=== PATIENT | male | born 1970 | race Caucasian/White ===

== ENCOUNTER 2017-01-26 08:50 | Inpatient (IN) | payer OTHER ==
[2017-01-26 09:07] VITALS: BMI 24.3
--- NOTE | 2017-01-26 11:36 | HP ---
COWS - Scale Resting Pulse: 1= [place] 81-100 Sweatin=Flushed/Facial Moisture Restless Observation: 1= Difficult to Sit Still Pupil Size: 0= Normal to Room Light Bone or Joint Aches: 2= Severe Diffuse Aches Runny Nose/ Eye Tearin= Runny Nose/Eyes GI Upset > 30mins: 2= Nausea/Diarrhea Tremor Observation: 2= Slight Tremor Visible Yawning Observation: 1= 1-2x During Session Anxiety or Irritability: 2=Irritable/Anxious Goose Flesh Skin: 0=Smooth Skin COWS Score: 15 Admission ROS [facility] Chief Complaint: "I want to get off of this Heroin habit that I have." Patient is here to Detox from Heroin. Allergies/Adverse Reactions: Allergies Allergy/AdvReac Type Severity Reaction Status Date / Time No Known Drug Allergies Allergy Verified 01/26/17 09:42 peanut Allergy Intermediate Difficulty Uncoded 01/26/17 09:41 Breathing tomat Allergy Intermediate Hives Uncoded 01/26/17 09:42 History of Present Illness: Patient is a 46 YO male here to detox from Heroin. Patient had 1 previous Detox admission at [facility]) in 04/2016. Most recent period of non- drug use: approx. 2 years, while patient was incarcerated (04/2014 - 04/2016). Exam Limitations: No Limitations - Ebola screening Have you traveled outside of the country in the last 21 days: No Have you had contact with anyone from an Ebola affected area: No Have you been sick,other than usual withdrawal symptoms: No Do you have a fever: No - Review of Systems Constitutional: Chills, Diaphoresis, Fever, Loss of Appetite, Malaise, Night Sweats, Changes in sleep, Unintentional Wgt. Loss (Lost aprox. 20 lbs in 1.5 months.) EENT: reports: Blurred Vision, Nose Congestion, Sinus Pressure, Throat Pain ( Mild discomfort in throat X 1 month. Patient avised to follow-up with [facility] at [facility] ([facility]) after discahrge from Detox for further medical evaluation.) Respiratory: reports: No Symptoms reported Cardiac: reports: No Symptoms Reported GI: reports: Constipated, Nausea, Poor Appetite, Vomiting, Indigestion, Abdominal cramping : reports: Urgency Musculoskeletal: reports: Back Pain, Joint Pain, Muscle Pain, Joint Stiffness Integumentary: reports: No Symptoms Reported Neuro: reports: Headache, Numbness (In fingertips of right hand (history of injury to right hand).), Tingling (In fingertips of right hand (history of injury to right hand).), Tremors Endocrine: reports: No Symptoms Reported Hematology: reports: Easy Bleeding (History of Low Platelets.), Easy Bruising Psychiatric: reports: Judgement Intact, Mood/Affect Appropiate, Orientated x3, Anxious, Depressed (No previous treatment.) Other Systems: Reviewed and Negative Patient History - Patient Medical History Hx Anemia: Yes (History of Thrombocytopenia.) Hx Asthma: No Hx Chronic Obstructive Pulmonary Disease (COPD): No Hx Cancer: No Hx Cardiac Disorders: No Hx Hypertension: No Hx Hypercholesterolemia: No Hx Pacemaker: No HX Cerebrovascular Accident: No Hx Seizures: No Hx Dementia: No Hx Diabetes: No Hx Gastrointestinal Disorders: No Hx Liver Disease: No Hx Genitourinary Disorders: No Hx Sexually Transmitted Disorders: No Hx Renal Disease (ESRD): No Hx Thyroid Disease: No Hx Human Immunodeficiency Virus (HIV): No (Last Tested approx. 6 months ago: NEGATIVE.) Hx Hepatitis C: No (Negative History.) Hx Depression: Yes (No previous treatment.) Hx Suicide Attempt: No (PATIENT DENIES CURRENT SI / HI.) Hx Bipolar Disorder: No Hx Schizophrenia: No Other Medical History: DENIES. - Patient Surgical History Past Surgical History: No Hx Neurologic Surgery: No Hx Cataract Extraction: No Hx Cardiac Surgery: No Hx Lung Surgery: No Hx Breast Surgery: No Hx Breast Biopsy: No Hx Abdominal Surgery: No Hx Appendectomy: No Hx Cholecystectomy: No Hx Genitourinary Surgery: No Hx Orthopedic Surgery: Yes (Screws placed in Right Ankle after injury, 2008.) Anesthesia Reaction: No - PPD History Previous Implant?: Yes Documented Results: Negative w/o proof Implanted On Prior [facility] Admission?: No PPD to be Administered?: Yes - Reproductive History Patient is a Female of Child Bearing Age (11 -55 yrs old): No (PATIENT IS MALE.) - Smoking Cessation Smoking history: Current every day smoker Have you smoked in the past 12 months: Yes Aproximately how many cigarettes per day: 20 Cigars Per Day: 0 Hx Chewing Tobacco Use: No Initiated information on smoking cessation: Yes 'Breaking Loose' booklet given: 01/26/17 (GIVEN ON UNIT.) - Substance & Tx. History Hx Alcohol Use: No Hx Substance Use: Yes Substance Use Type: Cocaine, Heroin, Marijuana, Tranquilizers Hx Substance Use Treatment: Yes (1 Previous Detox admission at [facility] ( [place], [place]), @ 04/2016.) - Substances Abused Heroin Route: Inhalation Frequency: Daily Amount used: 15 bags Age of first use: 12 Date of Last Use: 01/25/17 Cocaine Route: Inhalation Frequency: Daily Amount used: $20 Age of first use: 12 Date of Last Use: 01/24/17 Marijuana/Hashish Route: Smoking Frequency: Daily Amount used: $20 Age of first use: 15 Date of Last Use: 01/24/17 Alprazolam (Xanax) Route: Oral Frequency: 1-3 times last 30 days Amount used: 4 MG - 6 MG Age of first use: 44 Date of Last Use: 01/19/17 Benzodiazepine (Klonopin) Route: Oral Frequency: 1-3 times last 30 days Amount used: 4 MG - 6 MG Age of first use: 44 Date of Last Use: 01/20/17 Family Disease History - Family Disease History Family Disease History: Diabetes: Father (HTN, .), Mother (HTN, .), Heart Disease: Father, Mother Admission Physical Exam [facility] - Vital Signs Vital Signs: Vital Signs - 24 hr 01/26/17 09:06 Temperature 97.9 F Pulse Rate 83 Respiratory 18 Rate Blood Pressure 130/87 - Physical General Appearance: Yes: No Apparent Distress, Nourished, Appropriately Dressed , Tremorous, Sweating, Anxious HEENTM: Yes: Hearing grossly Normal, Normocephalic, Normal Voice, LAUREN, Pharynx Normal Respiratory: Yes: Chest Non-Tender, Lungs Clear, No Respiratory Distress, No Accessory Muscle Use Neck: Yes: No masses,lesions,Nodules, Trachea in good position Breast: Yes: Breast Exam Deferred, Within Normal Limits Cardiology: Yes: Regular Rhythm, Regular Rate, S1, S2 Abdominal: Yes: Normal Bowel Sounds, Flat, Soft Genitourinary: Yes: Within Normal Limits Back: Yes: Decreased Range of Motion Musculoskeletal: Yes: Gait Steady, Back pain, Joint Stiffness Extremities: Yes: Tremors Neurological: Yes: Fully Oriented, Alert, Normal Mood/Affect, Normal Response Integumentary: Yes: Normal Color, Dry, Warm Lymphatic: Yes: Within Normal Limits - Diagnostic (1) Opioid dependence with withdrawal Current Visit: Yes Status: Acute (2) Sedative, hypnotic or anxiolytic dependence, uncomplicated Current Visit: Yes Status: Chronic (3) Cocaine dependence, uncomplicated Current Visit: Yes Status: Acute (4) Cannabis dependence, uncomplicated Current Visit: Yes Status: Acute (5) Nicotine dependence Current Visit: Yes Status: Chronic Qualifiers: Nicotine product type: cigarettes Substance use status: uncomplicated Qualified Code(s): F17.210 - Nicotine dependence, cigarettes, uncomplicated (6) History of thrombocytopenia Current Visit: Yes Status: Suspected (7) Depression (emotion) Current Visit: Yes Status: Acute Qualifiers: Depression Type: unspecified Qualified Code(s): F32.9 - Major depressive disorder, single episode, unspecified Cleared for Admission [facility] - Detox or Rehab [facility] Level of Care: Medically Managed Detox Regimen/Protocol: Methadone [facility] Breath Alcohol Content Breath Alcohol Content: 0 Urine Drug Screen - Results Drug Screen Negative: No Urine Drug Screen Results: THC-Marijuana, DILIP-Cocaine, OPI-Opiates, MTD- Methadone
[2017-01-26] MEDS ORDERED: P-EPHED 60MG/TRIPROLIDI 2.5MG TABLET PO PRN (14:31)
[2017-01-26] MEDS ORDERED: hydrOXYzine PAMOATE 50 MG CAPSULE (FP) PO PRN (14:31)
[2017-01-26] MEDS ORDERED: guaiFENesin/D-METHORPHAN HB 10 ML UNIT-DOSE CUPS PO PRN (14:31)
[2017-01-26] MEDS ORDERED: MAGNESIUM HYDROX 2400MG/30ML ORAL SUSPENSION 30 ML CUP PO PRN (14:31)
[2017-01-26] MEDS ORDERED: MAGNESIUM CITRATE 300 ML BOTTLE PO PRN (14:31)
[2017-01-26] MEDS ORDERED: ACETAMINOPHEN 325 MG TABLET (FP) PO PRN (14:31)
[2017-01-26] MEDS ORDERED: NICOTINE POLACRILEX 4 MG GUM BUC PRN (14:31)
[2017-01-26] MEDS ORDERED: IBUPROFEN 400 MG TABLET (FP) PO PRN (14:31)
[2017-01-26] MEDS ORDERED: MENTHOL/PHENOL 1 EACH UD MM PRN (14:31)
[2017-01-26] MEDS ORDERED: LOPERAMIDE HCL 2 MG CAPSULE PO PRN (14:31)
[2017-01-26] MEDS ORDERED: MAG HYDROX/AL HYDROX/SIMETH 30 ML UNIT-DOSE CUP PO PRN (14:31)
[2017-01-26] MEDS ORDERED: METHADONE HCL 10 MG TABLET (FOR DETOX USE ONLY) PO ONE ×2 (14:40→23:00)
[2017-01-26] MEDS: diazePAM 5 MG TABLET PO PRN ×2 (15:07→22:22)
[2017-01-26 22:09] LABS: URINE APPEARANCE CLEAR; URINE BILIRUBIN NEGATIVE (NEGATIVE); URINE BLOOD NEGATIVE (NEGATIVE); URINE COLOR AMBER; URINE GLUCOSE (UA) NEGATIVE (NEGATIVE); URINE KETONE TRACE (NEGATIVE); URINE NITRITE NEGATIVE (NEGATIVE); URINE PROTEIN NEGATIVE (NEGATIVE); URINE UROBILINOGEN 4.0 E.U/dl mg/dL (0.2-1.0)
[2017-01-26] MEDS: THIAMINE HCL 100 MG TABLET (FP) PO SCH (22:22)
[2017-01-27] MEDS: diazePAM 5 MG TABLET PO PRN ×3 (06:06→22:15)
--- NOTE | 2017-01-27 09:11 | PN ---
[facility] CIWA - CIWA Score Nausea/Vomitin Muscle Tremors: 3 Anxiety: 3 Agitation: 3 Paroxysmal Sweats: 3 Orientation: 0-Oriented Tacttile Disturbances: 0-None Auditory Disturbances: 0-None Visual Disturbances: 0-None Headache: 0-None Present CIWA-Ar Total Score: 15 [facility] COWS - Scale Resting Pulse: 1= [place] 81-100 Sweatin= Chills/Flushing Restless Observation: 1= Difficult to Sit Still Pupil Size: 1= Pupils >than Normal Bone or Joint Aches: 1= Mild Discomfort Runny Nose/ Eye Tearin= Nasal Congestion GI Upset > 30mins: 2= Nausea/Diarrhea Tremor Observation of Outstretched Hands: 1= Tremor [place], Not Seen Yawning Observation: 1= 1-2x During Session Anxiety or Irritability: 2=Irritable/Anxious Goose Flesh Skin: 3=Piloerection COWS Score: 15 [facility] Progress Note (SOAP) Subjective: nausea, sweats, interrupted sleep, anxiety, tremors Objective: 01/27/17 09:10 Vital Signs - 24 hr 01/26/17 01/26/17 01/26/17 14:30 18:18 22:01 Temperature 98.2 F 97.7 F 98.2 F Pulse Rate 92 H 86 80 Respiratory 20 20 18 Rate Blood Pressure 136/60 114/79 104/69 01/27/17 01/27/17 03:30 06:00 Temperature 97.9 F Pulse Rate 63 Respiratory 18 18 Rate Blood Pressure 115/74 Laboratory Tests 01/26/17 15:00 Urine Color Shobha Urine Appearance Clear Urine pH 5.0 Ur Specific Joshua 1.026 Urine Protein Negative Urine Glucose (UA) Negative Urine Ketones Trace H Urine Blood Negative Urine Nitrite Negative Urine Bilirubin Negative Urine Urobilinogen 4.0 e.u/dl labs pending Assessment: 01/27/17 09:10 withdrawal sx Plan: cont detox, lfuids
[2017-01-27 09:25] LABS: URINE LEUK ESTERASE Negative (NEGATIVE)
[2017-01-27] MEDS ORDERED: METHADONE HCL 10 MG TABLET (FOR DETOX USE ONLY) PO ONE (10:00)
[2017-01-27] MEDS ORDERED: PANTOPRAZOLE 40 MG TABLET (FP) PO SCH (10:00)
[2017-01-27] MEDS ORDERED: PRENATAL VITAMINS W/ FOLIC ACID TABLET (FP) PO SCH (10:00)
[2017-01-27] MEDS ORDERED: NICOTINE 21 MG/24 HOURS TOPICAL PATCH TD SCH (10:00)
[2017-01-27 10:09] LABS: MCH 29.8 pg (25.7-33.7); MCHC 33.1 g/dl (32.0-35.9); MEAN CELL VOLUME 89.9 fl (80-96); PLATELET COUNT 111 K/MM3 (134-434); RDW 13.8 % (11.9-15.9); WHITE BLOOD COUNT 7.6 K/mm3 (4.0-10.0)
--- NOTE | 2017-01-27 10:17 | EKG ---
Test Reason : Blood Pressure : / mmHG Vent. Rate : 076 BPM Atrial Rate : 076 BPM P-R Int : 156 ms QRS Dur : 104 ms QT Int : 364 ms P-R-T Axes : 072 021 056 degrees QTc Int : 409 ms NORMAL SINUS RHYTHM NORMAL ECG NO PREVIOUS ECGS AVAILABLE Confirmed by MERY BARNARD, MARCELA ([id number]) on 01/27/2017 10:17:20 AM Referred By: Confirmed By:MARCELA ORDONEZ MD
[2017-01-27 10:44] LABS: ALBUMIN 4.2 g/dl (3.4-5.0); ALK PHOS 61 U/L (45-117); ANION GAP 7 (8-16); BILIRUBIN,TOTAL 1.1 mg/dL (0.2-1.0); CO2 28 mmol/L (21-32); CREATININE 1.2 mg/dL (0.7-1.3); GLUCOSE,RANDOM 153 mg/dL (74-106); SGOT/AST 12 U/L (15-37); SGPT/ALT 22 U/L (12-78); TOT PROT 6.9 g/dl (6.4-8.2)
[2017-01-27] MEDS: AMMONIUM LACTATE 12% LOTION 225 GM BOTTLE TP SCH ×2 (11:06→22:16)
[2017-01-27 15:49] LABS: HIV 1 & 2 AB NEGATIVE; HIV 1 AGp24 NEGATIVE
--- NOTE | 2017-01-27 16:58 | CONSULT ---
[facility] Psychiatric Consult - Data Date of interview: 01/27/17 Admission source: [facility] Identifying data: First admission to [facility] for this 46 y/o male seeking detox treatment on for heroin,cocaine,xanax and marihuana dependence.Patient is single,a father of one,homeless,unemployed and supported on food stamps. Substance Abuse History: Confirmed by the patient in this session.See [facility] report for details : Smoking history: Current every day smoker. Have you smoked in the past 12 months: Yes. Aproximately how many cigarettes per day: 20. Cigars Per Day: 0. Hx Chewing Tobacco Use: No. Initiated information on smoking cessation: Yes. 'Breaking Loose' booklet given: 01/26/17 (GIVEN ON UNIT.). - Substance & Tx. History. Hx Alcohol Use: No. Hx Substance Use: Yes. Substance Use Type: Cocaine, Heroin, Marijuana, Tranquilizers. Hx Substance Use Treatment: Yes (1 Previous Detox admission at [place], [place]), @ 04/2016.). - Substances Abused. Heroin. Route: Inhalation. Frequency: Daily. Amount used: 15 bags. Age of first use: 12. Date of Last Use: 01/25/17. Cocaine. Route: Inhalation. Frequency: Daily. Amount used : $20. Age of first use: 12. Date of Last Use: 01/24/17. Marijuana/ Hashish. Route: Smoking. Frequency: Daily. Amount used: $20. Age of first use: 15. Date of Last Use: 01/24/17. Alprazolam (Xanax). Route: Oral. Frequency: 1-3 times last 30 days. Amount used: 4 MG - 6 MG. Age of first use : 44. Date of Last Use: 01/19/17. Benzodiazepine (Klonopin). Route: Oral. Frequency: 1-3 times last 30 days. Amount used: 4 MG - 6 MG. Age of first use: 44. Date of Last Use: 01/20/17 Medical History: Patient denies medical problems.Noted history of orthosurgery for fracture of right ankle (hardware in situ) in 2009. Psychiatric History: Patient denies. Physical/Sexual Abuse/Trauma History: No reported history of abuse. Additional Comment: Urine Drug Screen Results: THC-Marijuana, DILIP-Cocaine, OPI- Opiates, MTD-Methadone.Noted. Mental Status Exam - Mental Status Exam Alert and Oriented to: Time, Place, Person Cognitive Function: Good Patient Appearance: Well Groomed (tattoos all over forearms) Mood: Euthymic Affect: Normal Range Patient Behavior: Appropriate, Cooperative Speech Pattern: Clear, Appropriate Voice Loudness: Normal Thought Process: Intact, Goal Oriented Thought Disorder: Not Present Hallucinations: Denies Suicidal Ideation: Denies Homicidal Ideation: Denies Insight/Judgement: Poor Sleep: Poorly, Difficulty falling asleep Appetite: Good Muscle strength/Tone: Normal Gait/Station: Normal Psychiatric Findings - Problem List ([place] 1, 2,3) (1) Opioid dependence with withdrawal Current Visit: Yes Status: Acute (2) Cannabis dependence, uncomplicated Current Visit: Yes Status: Acute (3) Sedative, hypnotic or anxiolytic dependence, uncomplicated Current Visit: Yes Status: Chronic (4) Cocaine dependence, uncomplicated Current Visit: Yes Status: Acute (5) Nicotine dependence Current Visit: Yes Status: Acute Qualifiers: Nicotine product type: cigarettes Substance use status: uncomplicated Qualified Code(s): F17.210 - Nicotine dependence, cigarettes, uncomplicated (6) Insomnia Current Visit: Yes Status: Acute - Initial Treatment Plan Initial Treatment Plan: Psychoeducation.Detoxification.Sleep hygiene recommended.Ambien 10 mg po hs prn.Patient is informed of risk of parasomnias.He is in agreement with this careplan.Observation.
[2017-01-27] MEDS ORDERED: ZOLPIDEM TARTRATE 10 MG TABLET (PARK CARE ONLY) PO PRN (22:00)
[2017-01-27] MEDS: THIAMINE HCL 100 MG TABLET (FP) PO SCH (22:15)
[2017-01-27 22:49] VITALS: TEMP 98.1
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
--- NOTE | 2017-01-28 09:25 | DS ---
[facility] Detox Discharge Summary Admission Date: 01/26/17 Discharge Date: 01/28/17 - History Present History: Alcohol Dependence, Cannabis Dependence, Opioid Dependence - Physical Exam Results Vital Signs: Vital Signs Temperature 98.1 F 01/28/17 06:00 Pulse Rate 54 L 01/28/17 06:00 Respiratory Rate 18 01/28/17 06:00 Blood Pressure 120/76 01/28/17 06:00 O2 Sat by Pulse Oximetry (%) - Treatment Hospital Course: Discharged Condition Good - Medication Discharge Medications: Ambulatory Orders NK [No Known Home Medication] 01/26/17 - AMA Did Patient Leave Against Medical Advice: No (not following unit rules, fighting on the unit)
[2017-01-28] MEDS ORDERED: METHADONE HCL 5 MG TABLET (FOR DETOX USE ONLY) PO ONE (10:00)
[2017-01-28 11:32] VITALS: BP 131/63; PULSE 75
[2017-01-29] MEDS ORDERED: METHADONE HCL 5 MG TABLET (FOR DETOX USE ONLY) PO ONE (10:00)
[2017-01-30] MEDS ORDERED: METHADONE HCL 10 MG TABLET (FOR DETOX USE ONLY) PO ONE (10:00)
[2017-01-31] MEDS ORDERED: METHADONE HCL 5 MG TABLET (FOR DETOX USE ONLY) PO ONE (06:00)
== END 2017-01-28 09:40 | disposition home or self-care (01) | DRG 773 ==
LOC: YASAS 08:50 → Y6N 12:09
PROVIDERS: ADMIT Internal Medicine; ATTEND Internal Medicine
PROC: HZ2ZZZZ Detoxification Services for Substance Abuse Treatment (ICD-10-PCS; principal; 2017-01-26)
DX: F11.23 Opioid dependence with withdrawal (principal); F13.230 Sedative, hypnotic or anxiolytic dependence with withdrawal, uncomplicated; F14.20 Cocaine dependence, uncomplicated; F12.20 Cannabis dependence, uncomplicated; F17.210 Nicotine dependence, cigarettes, uncomplicated; F32.9 Major depressive disorder, single episode, unspecified; F91.8 Other conduct disorders; G47.00 Insomnia, unspecified; Z91.010 Allergy to peanuts; Z86.2 Personal history of diseases of the blood and blood-forming organs and certain disorders involving the immune mechanism; Z59.0 Homelessness
CPT/HCPCS: 36415; 80053; 81003; 85027; 86593; 86803; 87389; 93005; 93010

== ENCOUNTER 2017-05-18 09:25 | Inpatient (IN) | payer OTHER ==
[2017-05-18 09:33] VITALS: BMI 23.3
--- NOTE | 2017-05-18 12:35 | HP ---
COWS - Scale Resting Pulse: 0= [place] 80 or Below Sweatin= Chills/Flushing Restless Observation: 1= Difficult to Sit Still Pupil Size: 1= Pupils >than Normal Bone or Joint Aches: 1= Mild Discomfort Runny Nose/ Eye Tearin= Nasal Congestion GI Upset > 30mins: 3= Vomiting/Diarrhea Tremor Observation: 2= Slight Tremor Visible Yawning Observation: 1= 1-2x During Session Anxiety or Irritability: 2=Irritable/Anxious Goose Flesh Skin: 3=Piloerection COWS Score: 16 Admission [facility] Chief Complaint: heroin withdrawal sx Allergies/Adverse Reactions: Allergies Allergy/AdvReac Type Severity Reaction Status Date / Time peanut Allergy Severe Difficulty Verified 05/18/17 10:48 Breathing tomato Allergy Severe Hives Verified 05/18/17 10:48 No Known Drug Allergies Allergy Verified 01/26/17 09:42 History of Present Illness: 46 yo m with h/o severe opioid use disorder has been to [facility] last year for detox requesting [facility] detox because of opioid withdrwal sx. sniffs cocaine daily, smokes marijuana and cigarrettes (1/2PPD) daily. no h/o seizures, DTs, no si at this time. P<HX depression,a nxiety, insomnai and thristy, s/p fx r ankle s/p orif no w has chronic pain syndromw Exam Limitations: No Limitations - Ebola screening Have you traveled outside of the country in the last 21 days: No Have you had contact with anyone from an Ebola affected area: No Have you been sick,other than usual withdrawal symptoms: No Do you have a fever: No - Review of Systems Constitutional: Chills, Diaphoresis, Night Sweats, Changes in sleep, Unintentional Wgt. Loss EENT: reports: Tearing, Nose Congestion Respiratory: reports: No Symptoms reported Cardiac: reports: No Symptoms Reported GI: reports: Diarrhea, Nausea, Poor Appetite, Poor Fluid Intake, Vomiting, Indigestion, Abdominal cramping : reports: No Symptoms Reported Musculoskeletal: reports: Back Pain, Muscle Pain Integumentary: reports: Flushing, Sweating Neuro: reports: Headache, Tremors Endocrine: reports: Increased Thirst Hematology: reports: No Symptoms Reported Psychiatric: reports: Judgement Intact, Mood/Affect Appropiate, Orientated x3, Agitated, Anxious, Depressed Other Systems: Reviewed and Negative Patient History - Patient Medical History Hx Anemia: Yes (History of Thrombocytopenia.) Hx Asthma: No Hx Chronic Obstructive Pulmonary Disease (COPD): No Hx Cancer: No Hx Cardiac Disorders: No Hx Congestive Heart Failure: No Hx Hypertension: No Hx Hypercholesterolemia: No Hx Pacemaker: No HX Cerebrovascular Accident: No Hx Seizures: No Hx Dementia: No Hx Diabetes: No Hx Gastrointestinal Disorders: No Hx Liver Disease: No Hx Genitourinary Disorders: No Hx Sexually Transmitted Disorders: No Hx Renal Disease (ESRD): No Hx Thyroid Disease: No Hx Human Immunodeficiency Virus (HIV): No (Last Tested approx. 6 months ago: NEGATIVE.) Hx Hepatitis C: No (Negative History.) Hx Depression: Yes (whe in withdrawal) Hx Suicide Attempt: No (no si at this time) Hx Bipolar Disorder: No Hx Schizophrenia: No - Patient Surgical History Past Surgical History: No Hx Neurologic Surgery: No Hx Cataract Extraction: No Hx Cardiac Surgery: No Hx Lung Surgery: No Hx Breast Surgery: No Hx Breast Biopsy: No Hx Abdominal Surgery: No Hx Appendectomy: No Hx Cholecystectomy: No Hx Genitourinary Surgery: No Hx Orthopedic Surgery: Yes (Screws placed in Right Ankle after injury, 2008.) Anesthesia Reaction: No - PPD History Previous Implant?: Yes Documented Results: Negative w/o proof PPD to be Administered?: Yes - Reproductive History Patient is a Female of Child Bearing Age (11 -55 yrs old): No Patient : No - Smoking Cessation Smoking history: Current every day smoker Have you smoked in the past 12 months: Yes Aproximately how many cigarettes per day: 10 Cigars Per Day: 0 Hx Chewing Tobacco Use: No Initiated information on smoking cessation: Yes 'Breaking Loose' booklet given: 05/18/17 - Substance & Tx. History Hx Alcohol Use: No Hx Substance Use: Yes Substance Use Type: Cocaine, Heroin, Marijuana, Opiates Hx Substance Use Treatment: Yes ([facility] detox) - Substances Abused Heroin Route: Inhalation Frequency: Daily Amount used: 8-10 bags Age of first use: 12 Date of Last Use: 05/17/17 Cocaine Route: Inhalation Frequency: Daily Amount used: $20-40 Age of first use: 12 Date of Last Use: 05/17/17 Marijuana Route: Smoking Frequency: Daily Amount used: $20 Age of first use: 12 Date of Last Use: 05/17/17 Family Disease History - Family Disease History Family Disease History: Diabetes: Father (HTN, .), Mother (HTN, .), Heart Disease: Father, Mother Admission Physical Exam [facility] - Vital Signs Vital Signs: Vital Signs - 24 hr 05/18/17 09:32 Temperature 97 F L Pulse Rate 65 Respiratory 18 Rate Blood Pressure 138/81 - Physical General Appearance: Yes: Nourished, Appropriately Dressed, Disheveled, Mild Distress, Thin, Tremorous, Irritable, Sweating, Anxious HEENTM: Yes: Within Normal Limits, EOMI, Hearing grossly Normal, Normocephalic, Normal Voice, LAUREN, Pharynx Normal, Nasal Congestion, Rhinorrhea Respiratory: Yes: Within Normal Limits, Chest Non-Tender, Lungs Clear, Normal Breath Sounds, No Respiratory Distress, No Accessory Muscle Use Neck: Yes: Within Normal Limits, No masses,lesions,Nodules, Supple Breast: Yes: Breast Exam Deferred Cardiology: Yes: Within Normal Limits, Regular Rhythm, Regular Rate, S1, S2 Abdominal: Yes: Within Normal Limits, Normal Bowel Sounds, Non Tender, Flat, Soft, Increased Bowel Sounds Genitourinary: Yes: Within Normal Limits Back: Yes: Within Normal Limits, Normal Inspection, Muscle Spasm Neurological: Yes: iuss analyst II-XII NML intact, Fully Oriented, Alert, Motor Strength 5/5, Normal Response, Depressed Affect Integumentary: Yes: Normal Color, Warm, Diaphoresis, Moist Lymphatic: Yes: Within Normal Limits - Addiitonal Findings: withdrawal sx - Diagnostic (1) Cannabis dependence, uncomplicated Current Visit: No Status: Acute (2) Cocaine dependence, uncomplicated Current Visit: No Status: Acute (3) Insomnia Current Visit: No Status: Acute (4) Nicotine dependence Current Visit: No Status: Acute Qualifiers: Nicotine product type: cigarettes Substance use status: uncomplicated Qualified Code(s): F17.210 - Nicotine dependence, cigarettes, uncomplicated (5) Opioid dependence with withdrawal Current Visit: No Status: Acute (6) History of thrombocytopenia Current Visit: No Status: Suspected (7) Dehydration Current Visit: Yes Status: Acute (8) Depression Current Visit: Yes Status: Acute S Breath Alcohol Content Breath Alcohol Content: 0 Urine Drug Screen - Results Drug Screen Negative: No Urine Drug Screen Results: THC-Marijuana, DILIP-Cocaine, OPI-Opiates
[2017-05-18] MEDS ORDERED: MENTHOL/PHENOL 1 EACH UD MM PRN (12:36)
[2017-05-18] MEDS ORDERED: LOPERAMIDE HCL 2 MG CAPSULE PO PRN (12:36)
[2017-05-18] MEDS ORDERED: hydrOXYzine PAMOATE 50 MG CAPSULE (FP) PO PRN (12:36)
[2017-05-18] MEDS ORDERED: MAG HYDROX/AL HYDROX/SIMETH 30 ML UNIT-DOSE CUP PO PRN (12:36)
[2017-05-18] MEDS ORDERED: MAGNESIUM CITRATE 300 ML BOTTLE PO PRN (12:36)
[2017-05-18] MEDS ORDERED: NICOTINE POLACRILEX 2 MG GUM BC PRN (12:36)
[2017-05-18] MEDS ORDERED: P-EPHED 60MG/TRIPROLIDI 2.5MG TABLET PO PRN (12:36)
[2017-05-18] MEDS ORDERED: IBUPROFEN 400 MG TABLET (FP) PO PRN (12:36)
[2017-05-18] MEDS ORDERED: MAGNESIUM HYDROX 2400MG/30ML ORAL SUSPENSION 30 ML CUP PO PRN (12:36)
[2017-05-18] MEDS ORDERED: guaiFENesin/D-METHORPHAN HB 10 ML UNIT-DOSE CUPS PO PRN (12:36)
[2017-05-18] MEDS: diazePAM 5 MG TABLET PO PRN ×2 (13:21→22:13)
[2017-05-18] MEDS: cloNIDine HCL 0.1 MG TABLET PO SCH ×2 (13:21→22:14)
[2017-05-18] MEDS: CYCLOBENZAPRINE HCL 10 MG TABLET (FP) PO SCH ×2 (13:23→22:14)
[2017-05-18] MEDS ORDERED: METHADONE HCL 10 MG TABLET (FOR DETOX USE ONLY) PO ONE ×2 (13:30→23:00)
[2017-05-18 14:22] LABS: URINE APPEARANCE CLEAR; URINE BILIRUBIN NEGATIVE (NEGATIVE); URINE BLOOD NEGATIVE (NEGATIVE); URINE COLOR YELLOW; URINE GLUCOSE (UA) NEGATIVE (NEGATIVE); URINE KETONE NEGATIVE (NEGATIVE); URINE LEUK ESTERASE NEGATIVE (NEGATIVE); URINE NITRITE NEGATIVE (NEGATIVE); URINE PROTEIN NEGATIVE (NEGATIVE); URINE UROBILINOGEN 4.0 E.U/dl mg/dL (0.2-1.0)
[2017-05-18] MEDS: NICOTINE 14 MG/24 HOURS TOPICAL PATCH TD SCH (15:08)
--- NOTE | 2017-05-18 15:20 | CONSULT ---
[facility] Psychiatric Consult - Data Date of interview: 05/18/17 Admission source: [facility] Identifying data: Second admission to [facility] for this 46 y/o male seeking detox treatment on for heroin,cocaine and marihuana dependence.Patient is single,a father of one,homeless,unemployed and supported on food stamps. Substance Abuse History: Discussed with the patient.Mr Hdz admits to a 30+ year history of heroin abuse (snorts 8-10 bags daily) + 10 year history of cocaine abuse via snorting (20-40 dollllars a day) + smoking cannabis for more than 30 years (20 dollars a day). More details in current [facility] report : Smoking history: Current every day smoker. Have you smoked in the past 12 months: Yes. Aproximately how many cigarettes per day: 10. Cigars Per Day: 0. Hx Chewing Tobacco Use: No. Initiated information on smoking cessation: Yes. 'Breaking Loose' booklet given: 05/18/17. - Substance & Tx. History. Hx Alcohol Use: No. Hx Substance Use: Yes. Substance Use Type: Cocaine, Heroin, Marijuana, Opiates. Hx Substance Use Treatment: Yes ([facility] detox). - Substances Abused. Heroin. Route: Inhalation. Frequency: Daily. Amount used: 8-10 bags. Age of first use: 12. Date of Last Use: 05/17/17. Cocaine. Route: Inhalation. Frequency: Daily. Amount used: $20-40. Age of first use: 12. Date of Last Use: 05/17/17. Marijuana. Route: Smoking. Frequency: Daily. Amount used: $20. Age of first use: 12. Date of Last Use: 05/17/17 Medical History: Anemia,thrombocytopenia and a history of orthosurgery for fracture of right ankle (hardware in situ) in 2009. Psychiatric History: Patient denies history of psychiatric hospitalizations or OPD care.Mr Hdz denies history of sucide attempts. Physical/Sexual Abuse/Trauma History: Patient denies. Additional Comment: Urine Drug Screen Results: THC-Marijuana, DILIP-Cocaine, OPI- Opiates.Noted. Mental Status Exam - Mental Status Exam Alert and Oriented to: Time, Place, Person Cognitive Function: Good Patient Appearance: Well Groomed Mood: Nervous, Withdrawn Affect: Mood Congruent Patient Behavior: Fatigued, Appropriate, Cooperative Speech Pattern: Clear, Appropriate Voice Loudness: Normal Thought Process: Goal Oriented Thought Disorder: Not Present Hallucinations: Denies Suicidal Ideation: Denies Homicidal Ideation: Denies Insight/Judgement: Poor Sleep: Poorly, Difficulty falling asleep Appetite: Good Muscle strength/Tone: Normal Gait/Station: Normal Psychiatric Findings - Problem List ([place] 1, 2,3) (1) Opioid dependence with withdrawal Current Visit: Yes Status: Acute (2) Cannabis dependence, uncomplicated Current Visit: Yes Status: Acute (3) Cocaine dependence, uncomplicated Current Visit: Yes Status: Acute (4) Nicotine dependence Current Visit: No Status: Acute Qualifiers: Nicotine product type: cigarettes Substance use status: uncomplicated Qualified Code(s): F17.210 - Nicotine dependence, cigarettes, uncomplicated (5) Insomnia Current Visit: Yes Status: Acute - Initial Treatment Plan Initial Treatment Plan: Psychoeducation.Sleep hygiene.Detoxification in progress.Orientation to the unit.Patient is advised to participate in therapy groups,community meetings and recreational activities.Ambien 5 mg po hs prn.Patient is made aware of risk of parasomnias (sleep-walking).Mr Hdz agrees with this careplan.Observation.
--- NOTE | 2017-05-18 16:35 | PN ---
[facility] Progress Note Note: Patient presents admitted today for inpatient detox from Heroin and Cocaine. Also has history of marajuana abuse. Notified by nursing staff to review admitting EKG. Vital Signs Temperature 96.8 F L 05/18/17 13:52 Pulse Rate 68 05/18/17 13:52 Respiratory Rate 18 05/18/17 13:52 Blood Pressure 138/89 05/18/17 13:52 O2 Sat by Pulse Oximetry (%) Laboratory Tests 05/18/17 13:20 Urine Color Yellow Urine Appearance Clear Urine pH 6.0 Ur Specific [place] 1.023 Urine Protein Negative Urine Glucose (UA) Negative Urine Ketones Negative Urine Blood Negative Urine Nitrite Negative Urine Bilirubin Negative Urine Urobilinogen 4.0 e.u/dl Ur Leukocyte Esterase Negative Labs reviewed. EKG: Reviewed. +NSR, +bradycardia with HR at 56 at time of EKG. Subjective: Pt is A and O x 3. In NAD. Denies any chest pain, dizziness and SOB. Reports feeling sweaty and anxious. Obj: General: Resting in bed. Alert and conversational. Skin warm and intact. + sweating. Neck: supple, no jvd Car: S1S2. RRR. No murmurs or gallops Resp: CTA BL, no wheezing or rales. A/P: EKG sinus bradycardia Continue current treatment and orders Increase oral fluids Continue to monitor clinically
[2017-05-18] MEDS ORDERED: ZOLPIDEM TARTRATE 5 MG TABLET PO PRN (22:00)
[2017-05-18] MEDS: THIAMINE HCL 100 MG TABLET (FP) PO SCH (22:13)
[2017-05-19] MEDS: CYCLOBENZAPRINE HCL 10 MG TABLET (FP) PO SCH ×3 (05:31→22:25)
[2017-05-19] MEDS: diazePAM 5 MG TABLET PO PRN ×3 (05:33→22:25)
[2017-05-19] MEDS ORDERED: SODIUM CHLORIDE NASAL SPRAY 44 ML BOTTLE NS PRN (09:43)
[2017-05-19] MEDS ORDERED: METHADONE HCL 10 MG TABLET (FOR DETOX USE ONLY) PO ONE (10:00)
[2017-05-19] MEDS: PRENATAL VITAMINS W/ FOLIC ACID TABLET (FP) PO SCH (10:11)
[2017-05-19] MEDS: cloNIDine HCL 0.1 MG TABLET PO SCH ×2 (10:12→22:26)
[2017-05-19] MEDS: NICOTINE 14 MG/24 HOURS TOPICAL PATCH TD SCH (10:12)
[2017-05-19 10:16] LABS: HEMATOCRIT 41.3 % (35.4-49); HEMOGLOBIN 13.8 GM/dL (11.7-16.9); MCH 30.2 pg (25.7-33.7); MCHC 33.4 g/dl (32.0-35.9); MEAN CELL VOLUME 90.2 fl (80-96); MEAN PLT VOLUME 11.2 fl (7.5-11.1); PLATELET COUNT 159 K/MM3 (134-434); RBC 4.57 M/mm3 (4.00-5.60); RDW 13.5 % (11.9-15.9); WHITE BLOOD COUNT 5.5 K/mm3 (4.0-10.0)
[2017-05-19 10:23] LABS: ALBUMIN 4.1 g/dl (3.4-5.0); ANION GAP 3 (8-16); BLOOD UREA NITROGEN 19 mg/dL (7-18); CALCIUM 8.6 mg/dL (8.5-10.1); CHLORIDE 108 mmol/L (98-107); CO2 28 mmol/L (21-32); CREATININE 0.9 mg/dL (0.7-1.3); GLUCOSE,RANDOM 87 mg/dL (74-106); POTASSIUM 4.4 mmol/L (3.5-5.1); SODIUM 139 mmol/L (136-145)
[2017-05-19] MEDS: VITAMINS A AND D TOPICAL OINTMENT 60 GM TUBE TP SCH ×2 (10:23→22:26)
[2017-05-19 10:41] LABS: ALK PHOS 66 U/L (45-117); BILIRUBIN,TOTAL 0.5 mg/dL (0.2-1.0); SGOT/AST 26 U/L (15-37); SGPT/ALT 55 U/L (12-78); TOT PROT 6.6 g/dl (6.4-8.2)
--- NOTE | 2017-05-19 12:15 | PN ---
[facility] COWS - Scale Resting Pulse: 0= CT 80 or Below Sweatin= Chills/Flushing Restless Observation: 1= Difficult to Sit Still Pupil Size: 0= Normal to Room Light Bone or Joint Aches: 2= Severe Diffuse Aches Runny Nose/ Eye Tearin= None GI Upset > 30mins: 2= Nausea/Diarrhea Tremor Observation of Outstretched Hands: 2= Slight Tremor Visible Yawning Observation: 1= 1-2x During Session Anxiety or Irritability: 2=Irritable/Anxious Goose Flesh Skin: 3=Piloerection COWS Score: 14 S Progress Note (SOAP) Subjective: Diarrhea, Tremors, Body Aches, Fatigue, Interrupted Sleep, Sweating. Objective: PATIENT A & O X 3, OBSERVED AMBULATING ON UNIT. NO ACUTE DISTRESS. 05/19/17 12:13 Vital Signs Temperature 96.4 F L 05/19/17 09:26 Pulse Rate 66 05/19/17 09:26 Respiratory Rate 18 05/19/17 09:26 Blood Pressure 126/79 05/19/17 09:26 O2 Sat by Pulse Oximetry (%) Laboratory Tests 05/18/17 05/19/17 05/19/17 13:20 05:50 05:50 WBC 5.5 RBC 4.57 Hgb 13.8 Hct 41.3 MCV 90.2 MCH 30.2 MCHC 33.4 RDW 13.5 Plt Count 159 D MPV 11.2 H Sodium 139 Potassium 4.4 Chloride 108 H Carbon Dioxide 28 Anion Gap 3 L BUN 19 H Creatinine 0.9 D Creat Clearance w eGFR > 60 Random Glucose 87 D Calcium 8.6 Total Bilirubin 0.5 D AST 26 D ALT 55 D Alkaline Phosphatase 66 Total Protein 6.6 Albumin 4.1 Urine Color Yellow Urine Appearance Clear Urine pH 6.0 Ur Specific [place] 1.023 Urine Protein Negative Urine Glucose (UA) Negative Urine Ketones Negative Urine Blood Negative Urine Nitrite Negative Urine Bilirubin Negative Urine Urobilinogen 4.0 e.u/dl Ur Leukocyte Esterase Negative RPR Titer 05/19/17 05:50 WBC RBC Hgb Hct MCV MCH MCHC RDW Plt Count MPV Sodium Potassium Chloride Carbon Dioxide Anion Gap BUN Creatinine Creat Clearance w eGFR Random Glucose Calcium Total Bilirubin AST ALT Alkaline Phosphatase Total Protein Albumin Urine Color Urine Appearance Urine pH Ur Specific [place] Urine Protein Urine Glucose (UA) Urine Ketones Urine Blood Urine Nitrite Urine Bilirubin Urine Urobilinogen Ur Leukocyte Esterase RPR Titer Nonreactive LABS NOTED. HCV AB RESULT PENDING. 05/19/17 12:14 Assessment: 05/19/17 12:13 WITHDRAWAL SYMPTOMS. Plan: CONTINUE DETOX. INCREASE DAILY PO FLUID INTAKE. PRN IMMODIUM FOR DIARRHEA.
--- NOTE | 2017-05-19 16:23 | PN ---
[facility] Progress Note Note: Patient reports that he felt pain in chest pain earlier. According to patient's description of location, pain initiated at lateral aspect of chest and then moved inward. Patient reports that pain has since subsided considerably. Patient reports that similar occurrences have happened in past, usually when he feels anxious or worried about something. Patient also reports that when this pain occurs, he tends to feel discomfort that radiates from his hand "up" his right arm (patient has history of right wrist injury). Patient denies radiation of pain down left arm, to neck , and to upper back. Patient denies dizziness and SOB. Patient A & O x 3, observed ambulating on unit in no acute distress. ECG ordered, Results noted (Normal Sinus Rhythm). PRN Flexeril for muscular discomfort. Patient advised to immediately notify Nursing / Medical staff should discomfort occur at any time. Patient verbalized understanding of instructions. Delma Duarte NP
[2017-05-19] MEDS: THIAMINE HCL 100 MG TABLET (FP) PO SCH (22:25)
--- NOTE | 2017-05-20 00:56 | EKG ---
Test Reason : Blood Pressure : / mmHG Vent. Rate : 056 BPM Atrial Rate : 056 BPM P-R Int : 144 ms QRS Dur : 100 ms QT Int : 402 ms P-R-T Axes : 073 030 054 degrees QTc Int : 387 ms SINUS BRADYCARDIA OTHERWISE NORMAL ECG WHEN COMPARED WITH ECG OF 26-JAN-2017 14:32, NO SIGNIFICANT CHANGE WAS FOUND Confirmed by MARCELA ORDONEZ MD ([id number]) on 05/20/2017 12:55:46 AM Referred By: Confirmed By:MARCELA ORDONEZ MD
[2017-05-20] MEDS: ACETAMINOPHEN 325 MG TABLET (FP) PO PRN ×2 (05:18→11:48)
[2017-05-20] MEDS: CYCLOBENZAPRINE HCL 5 MG TABLET PO SCH ×4 (05:19→22:10)
[2017-05-20] MEDS: diazePAM 5 MG TABLET PO PRN ×3 (05:19→22:10)
--- NOTE | 2017-05-20 09:59 | EKG ---
Test Reason : Blood Pressure : / mmHG Vent. Rate : 070 BPM Atrial Rate : 070 BPM P-R Int : 156 ms QRS Dur : 100 ms QT Int : 384 ms P-R-T Axes : 075 017 051 degrees QTc Int : 414 ms NORMAL SINUS RHYTHM NONSPECIFIC T WAVE ABNORMALITY ABNORMAL ECG WHEN COMPARED WITH ECG OF 19-MAY-2017 14:04, NO SIGNIFICANT CHANGE WAS FOUND Confirmed by PRISCILA SEGOVIA MD ([id number]) on 05/20/2017 9:58:42 AM Referred By: Confirmed By:PRISCILA SEGOVIA MD
[2017-05-20] MEDS ORDERED: METHADONE HCL 5 MG TABLET (FOR DETOX USE ONLY) PO ONE (10:00)
[2017-05-20] MEDS: PRENATAL VITAMINS W/ FOLIC ACID TABLET (FP) PO SCH (10:22)
[2017-05-20] MEDS: cloNIDine HCL 0.1 MG TABLET PO SCH ×2 (10:22→22:10)
[2017-05-20] MEDS: NICOTINE 14 MG/24 HOURS TOPICAL PATCH TD SCH (12:29)
--- NOTE | 2017-05-20 13:22 | PN ---
[facility] CIWA - CIWA Score Nausea/Vomitin-No Nausea/No Vomiting (C/O CONSTIPATION) Muscle Tremors: 3 Anxiety: 4-Mod. Anxious/Guarded Agitation: 4-Moderately Restless Paroxysmal Sweats: 1-Minimal Palms Moist Orientation: 0-Oriented Tacttile Disturbances: 0-None Auditory Disturbances: 0-None Visual Disturbances: 0-None Headache: 0-None Present CIWA-Ar Total Score: 12 B[facility] Progress Note (SOAP) Subjective: ANXIETY,SWEATS,CONSTIPATION,FATIGUE.PT REQUESTING COLACE. Objective: 05/20/17 13:18 Vital Signs Temperature 97.9 F 05/20/17 13:12 Pulse Rate 89 05/20/17 13:12 Respiratory Rate 18 05/20/17 13:12 Blood Pressure 112/66 05/20/17 13:12 O2 Sat by Pulse Oximetry (%) Laboratory Last Values WBC 5.5 K/mm3 (4.0-10.0) 05/19/17 05:50 RBC 4.57 M/mm3 (4.00-5.60) 05/19/17 05:50 Hgb 13.8 GM/dL (11.7-16.9) 05/19/17 05:50 Hct 41.3 % (35.4-49) 05/19/17 05:50 MCV 90.2 fl (80-96) 05/19/17 05:50 MCH 30.2 pg (25.7-33.7) 05/19/17 05:50 MCHC 33.4 g/dl (32.0-35.9) 05/19/17 05:50 RDW 13.5 % (11.9-15.9) 05/19/17 05:50 Plt Count 159 K/MM3 (134-434) D 05/19/17 05:50 MPV 11.2 fl (7.5-11.1) H 05/19/17 05:50 Sodium 139 mmol/L (136-145) 05/19/17 05:50 Potassium 4.4 mmol/L (3.5-5.1) 05/19/17 05:50 Chloride 108 mmol/L (98-107) H 05/19/17 05:50 Carbon Dioxide 28 mmol/L (21-32) 05/19/17 05:50 Anion Gap 3 (8-16) L 05/19/17 05:50 BUN 19 mg/dL (7-18) H 05/19/17 05:50 Creatinine 0.9 mg/dL (0.7-1.3) D 05/19/17 05:50 Creat Clearance w eGFR > 60 (>60) 05/19/17 05:50 Random Glucose 87 mg/dL (74-106) D 05/19/17 05:50 Calcium 8.6 mg/dL (8.5-10.1) 05/19/17 05:50 Total Bilirubin 0.5 mg/dL (0.2-1.0) D 05/19/17 05:50 AST 26 U/L (15-37) D 05/19/17 05:50 ALT 55 U/L (12-78) D 05/19/17 05:50 Alkaline Phosphatase 66 U/L (45-117) 05/19/17 05:50 Total Protein 6.6 g/dl (6.4-8.2) 05/19/17 05:50 Albumin 4.1 g/dl (3.4-5.0) 05/19/17 05:50 Urine Color Yellow 05/18/17 13:20 Urine Appearance Clear 05/18/17 13:20 Urine pH 6.0 (5.0-8.0) 05/18/17 13:20 Ur Specific [place] 1.023 (1.001-1.035) 05/18/17 13:20 Urine Protein Negative (NEGATIVE) 05/18/17 13:20 Urine Glucose (UA) Negative (NEGATIVE) 05/18/17 13:20 Urine Ketones Negative (NEGATIVE) 05/18/17 13:20 Urine Blood Negative (NEGATIVE) 05/18/17 13:20 Urine Nitrite Negative (NEGATIVE) 05/18/17 13:20 Urine Bilirubin Negative (NEGATIVE) 05/18/17 13:20 Urine Urobilinogen 4.0 e.u/dl mg/dL (0.2-1.0) 05/18/17 13:20 Ur Leukocyte Esterase Negative (NEGATIVE) 05/18/17 13:20 RPR Titer Nonreactive (NONREACTIVE) 05/19/17 05:50 Hep C Ab Diagnostic <0.1 s/co ratio (0.0-0.9) 05/19/17 05:50 Assessment: 05/20/17 13:19 WITHDRAWAL SX Plan: CONTINUE DETOX MOM PRN AND CITRATE OF MG IF MOM NOT EFFECTIVE. INCREASE PO FLUIDS. COLACE 100 MG PO BID
--- NOTE | 2017-05-20 13:37 | PN ---
[facility] COWS - Scale Resting Pulse: 1= [place] 81-100 Sweatin= Chills/Flushing Restless Observation: 3= Extraneous Movement Pupil Size: 0= Normal to Room Light Bone or Joint Aches: 2= Severe Diffuse Aches Runny Nose/ Eye Tearin= Nasal Congestion GI Upset > 30mins: 1= Stomach Cramp Tremor Observation of Outstretched Hands: 2= Slight Tremor Visible Yawning Observation: 1= 1-2x During Session Anxiety or Irritability: 1=Feels Anxious/Irritable Goose Flesh Skin: 0=Smooth Skin COWS Score: 13
[2017-05-20] MEDS: VITAMINS A AND D TOPICAL OINTMENT 60 GM TUBE TP SCH ×2 (14:50→22:11)
[2017-05-20] MEDS ORDERED: ZOLPIDEM TARTRATE 10 MG TABLET (PARK CARE ONLY) PO PRN (22:00)
[2017-05-20] MEDS: THIAMINE HCL 100 MG TABLET (FP) PO SCH (22:10)
[2017-05-20] MEDS: DOCUSATE SODIUM 100 MG CAPSULE (FP) PO SCH (22:11)
[2017-05-21] MEDS: CYCLOBENZAPRINE HCL 5 MG TABLET PO SCH (05:16)
[2017-05-21] MEDS: diazePAM 5 MG TABLET PO PRN (05:16)
[2017-05-21] MEDS: ACETAMINOPHEN 325 MG TABLET (FP) PO PRN (06:52)
[2017-05-21 09:54] VITALS: BP 108/72; PULSE 71; TEMP 97.8
[2017-05-21] MEDS ORDERED: METHADONE HCL 5 MG TABLET (FOR DETOX USE ONLY) PO ONE (10:00)
[2017-05-21] MEDS: PRENATAL VITAMINS W/ FOLIC ACID TABLET (FP) PO SCH (10:35)
[2017-05-21] MEDS: NICOTINE 14 MG/24 HOURS TOPICAL PATCH TD SCH (10:36)
[2017-05-21] MEDS: DOCUSATE SODIUM 100 MG CAPSULE (FP) PO SCH (10:36)
[2017-05-21] MEDS: cloNIDine HCL 0.1 MG TABLET PO SCH (10:36)
--- NOTE | 2017-05-21 11:23 | PN ---
[facility] Progress Note (SOAP) Subjective: ANXIETY,IRRITABILITY, RESTLESSNESS. Objective: 05/21/17 11:22 Vital Signs Temperature 97.8 F 05/21/17 09:53 Pulse Rate 71 05/21/17 09:53 Respiratory Rate 18 05/21/17 09:53 Blood Pressure 108/72 05/21/17 09:53 O2 Sat by Pulse Oximetry (%) Laboratory Last Values WBC 5.5 K/mm3 (4.0-10.0) 05/19/17 05:50 RBC 4.57 M/mm3 (4.00-5.60) 05/19/17 05:50 Hgb 13.8 GM/dL (11.7-16.9) 05/19/17 05:50 Hct 41.3 % (35.4-49) 05/19/17 05:50 MCV 90.2 fl (80-96) 05/19/17 05:50 MCH 30.2 pg (25.7-33.7) 05/19/17 05:50 MCHC 33.4 g/dl (32.0-35.9) 05/19/17 05:50 RDW 13.5 % (11.9-15.9) 05/19/17 05:50 Plt Count 159 K/MM3 (134-434) D 05/19/17 05:50 MPV 11.2 fl (7.5-11.1) H 05/19/17 05:50 Sodium 139 mmol/L (136-145) 05/19/17 05:50 Potassium 4.4 mmol/L (3.5-5.1) 05/19/17 05:50 Chloride 108 mmol/L (98-107) H 05/19/17 05:50 Carbon Dioxide 28 mmol/L (21-32) 05/19/17 05:50 Anion Gap 3 (8-16) L 05/19/17 05:50 BUN 19 mg/dL (7-18) H 05/19/17 05:50 Creatinine 0.9 mg/dL (0.7-1.3) D 05/19/17 05:50 Creat Clearance w eGFR > 60 (>60) 05/19/17 05:50 Random Glucose 87 mg/dL (74-106) D 05/19/17 05:50 Calcium 8.6 mg/dL (8.5-10.1) 05/19/17 05:50 Total Bilirubin 0.5 mg/dL (0.2-1.0) D 05/19/17 05:50 AST 26 U/L (15-37) D 05/19/17 05:50 ALT 55 U/L (12-78) D 05/19/17 05:50 Alkaline Phosphatase 66 U/L (45-117) 05/19/17 05:50 Total Protein 6.6 g/dl (6.4-8.2) 05/19/17 05:50 Albumin 4.1 g/dl (3.4-5.0) 05/19/17 05:50 Urine Color Yellow 05/18/17 13:20 Urine Appearance Clear 05/18/17 13:20 Urine pH 6.0 (5.0-8.0) 05/18/17 13:20 Ur Specific [place] 1.023 (1.001-1.035) 05/18/17 13:20 Urine Protein Negative (NEGATIVE) 05/18/17 13:20 Urine Glucose (UA) Negative (NEGATIVE) 05/18/17 13:20 Urine Ketones Negative (NEGATIVE) 05/18/17 13:20 Urine Blood Negative (NEGATIVE) 05/18/17 13:20 Urine Nitrite Negative (NEGATIVE) 05/18/17 13:20 Urine Bilirubin Negative (NEGATIVE) 05/18/17 13:20 Urine Urobilinogen 4.0 e.u/dl mg/dL (0.2-1.0) 05/18/17 13:20 Ur Leukocyte Esterase Negative (NEGATIVE) 05/18/17 13:20 RPR Titer Nonreactive (NONREACTIVE) 05/19/17 05:50 Hep C Ab Diagnostic <0.1 s/co ratio (0.0-0.9) 05/19/17 05:50 Assessment: 05/21/17 11:22 WITHDRAWAL SX Plan: CONTINUE DETOX INCREASE PO FLUIDS
[2017-05-21] MEDS: VITAMINS A AND D TOPICAL OINTMENT 60 GM TUBE TP SCH (11:48)
--- NOTE | 2017-05-21 12:40 | DS ---
[facility] Detox Discharge Summary Admission Date: 05/18/17 Discharge Date: 05/21/17 - History Present History: Opioid Dependence Additional Comments: PT SIGNED OUT AMA STATING PERSONAL DISCOMFORT. PT WAS SEEN AND SPOKEN COUNSELLED. BUT PT INSISTS HE WANTS TO LEAVE. SIXTO WILSON SPOKE TO PATIENT ON AFTERCARE. - Physical Exam Results Vital Signs: Vital Signs Temperature 97.8 F 05/21/17 09:53 Pulse Rate 71 05/21/17 09:53 Respiratory Rate 18 05/21/17 09:53 Blood Pressure 108/72 05/21/17 09:53 O2 Sat by Pulse Oximetry (%) - Treatment Hospital Course: Discharged Condition Good - Medication Discharge Medications: Ambulatory Orders NK [No Known Home Medication] 01/26/17 - Diagnosis (1) Cannabis dependence, uncomplicated Current Visit: Yes Status: Acute (2) Cocaine dependence, uncomplicated Current Visit: Yes Status: Acute (3) Dehydration Current Visit: Yes Status: Acute (4) Opioid dependence with withdrawal Current Visit: Yes Status: Acute (5) Nicotine dependence Current Visit: Yes Status: Acute Qualifiers: Nicotine product type: cigarettes Substance use status: in withdrawal Qualified Code(s): F17.213 - Nicotine dependence, cigarettes, with withdrawal - AMA Did Patient Leave Against Medical Advice: Yes (AMA)
[2017-05-22] MEDS ORDERED: METHADONE HCL 10 MG TABLET (FOR DETOX USE ONLY) PO ONE (10:00)
[2017-05-23] MEDS ORDERED: METHADONE HCL 5 MG TABLET (FOR DETOX USE ONLY) PO ONE (06:00)
== END 2017-05-21 13:22 | disposition left against medical advice (07) | DRG 770 ==
LOC: YASAS 09:25 → Y3N 12:35
PROVIDERS: ADMIT Internal Medicine; ATTEND Internal Medicine
PROC: HZ2ZZZZ Detoxification Services for Substance Abuse Treatment (ICD-10-PCS; principal; 2017-05-18)
DX: F11.23 Opioid dependence with withdrawal (principal); F14.20 Cocaine dependence, uncomplicated; F12.20 Cannabis dependence, uncomplicated; F17.210 Nicotine dependence, cigarettes, uncomplicated; E86.0 Dehydration; Z86.2 Personal history of diseases of the blood and blood-forming organs and certain disorders involving the immune mechanism; Z59.0 Homelessness
CPT/HCPCS: 36415; 80053; 81003; 85027; 86593; 93005; 93010; J0735